=== PATIENT | male | born 1960 | race African-American/Black ===

== ENCOUNTER 2021-07-07 05:45 | Emergency (ER) | payer OTHER ==
[~2021-07-07] VITALS: Ht 193 cm; Wt 118.2 kg
[2021-07-07] MEDS ORDERED: LIDOCAINE 5% TRANSDERMAL PATCH TD ONE (07:00)
[2021-07-07] MEDS ORDERED: ACETAMINOPHEN 325 MG TABLET PO ONE (07:00)
[2021-07-07] MEDS: MORPHINE SULFATE 15 MG IR TABLET PO ONE ×2 (07:14→08:35)
[2021-07-07 07:52] VITALS: BP 178/124
[2021-07-07] MEDS ORDERED: NAPROXEN 250 MG TABLET PO ONE (08:00)
== END 2021-07-07 08:36 | disposition home or self-care (01) ==
LOC: EMS 05:46
DX: M25.552 Pain in left hip (principal); I10 Essential (primary) hypertension; F12.90 Cannabis use, unspecified, uncomplicated
CPT/HCPCS: 73503; 99284

== ENCOUNTER 2021-07-11 04:08 | Emergency (ER) | payer OTHER ==
[~2021-07-11] VITALS: Ht 193 cm; Wt 118.2 kg
[2021-07-11] MEDS ORDERED: ONDANSETRON HCL 4 MG/2 ML VIAL IM ONE (06:15)
[2021-07-11] MEDS ORDERED: MORPHINE SULFATE 4 MG/ML SYRINGE IM ONE (06:15)
[2021-07-11] MEDS ORDERED: AmLODIPine BESYLATE 5 MG TABLET PO ONE (06:45)
[2021-07-11 06:48] LABS: BASOPHILS % (AUTO) 0.7 % (0.0-2.0); EOSINOPHILS % (AUTO) 0.4 % (1.0-6.0); HEMATOCRIT 45.9 % (41-53); HEMOGLOBIN 15.7 g/dL (13.5-17.5); LYMPHOCYTES # (AUTO) 1.7 K/uL (1.0-4.8); LYMPHOCYTES % (AUTO) 20.3 % (22.0-44.0); MEAN CORPUSCULAR HEMOGLOBIN 27.5 pg (26.0-34.0); MEAN CORPUSCULAR HGB CONC 34.2 G/dL (31.0-37.0); MEAN CORPUSCULAR VOLUME 81 fL (80-100); MONOCYTES # (AUTO) 0.7 K/uL (0.1-1.0); MONOCYTES % (AUTO) 8.1 % (2.0-9.0); NEUTROPHILS # (AUTO) 5.9 K/uL (1.8-7.7); NEUTROPHILS % (AUTO) 70.5 % (40.0-70.0); PLATELET COUNT (AUTO) 248 K/uL (150-450); RED CELL DISTRIBUTION WIDTH 13.3 % (11.5-14.5)
[2021-07-11 07:08] LABS: ANION GAP 13 mmol/L (8-16); CALCIUM, TOTAL 9.6 mg/dL (8.8-10.5); CARBON DIOXIDE 23 mmol/L (22-29); CHLORIDE 102 mmol/L (98-107); CREATININE 1.21 mg/dL (0.60-1.30); GLOMERULAR FILTR. RATE CALC > 60 mL/min (>60); GLUCOSE,RANDOM 111 mg/dL (70-110); POTASSIUM 4.3 mmol/L (3.5-5.1); SODIUM SERUM 138 mmol/L (136-145); UREA NITROGEN, BLOOD 21 mg/dL (7-18)
[2021-07-11 07:12] LABS: ALANINE AMINOTRANSFERASE 78 U/L (12-78); ALBUMIN 4.6 g/dL (3.4-5.0); ALKALINE PHOSPHATASE 100 U/L (46-116); ASPARTATE AMINOTRANSFERASE 25 U/L (15-37); BILIRUBIN,TOTAL 0.9 mg/dL (0.1-1.0); TOTAL PROTEIN, SERUM 8.1 g/dL (6.4-8.2)
[2021-07-11] MEDS ORDERED: NITROGLYCERIN 2% (1 GM=INCH) PACKET TP ONE (07:15)
[2021-07-11] MEDS ORDERED: ASPIRIN 81 MG CHEWABLE TABLET PO ONE (07:15)
[2021-07-11] MEDS ORDERED: LABETALOL HCL 5 MG/ML 20 ML VIAL IVP ONE (07:15)
[2021-07-11] MEDS ORDERED: KETOROLAC TROMETHAMINE 30 MG/ML VIAL IVP ONE (07:45)
[2021-07-11 09:30] VITALS: BP 173/120
== END 2021-07-11 10:16 | disposition home or self-care (01) ==
LOC: EMS 04:11
DX: M25.552 Pain in left hip (principal); I10 Essential (primary) hypertension; F12.90 Cannabis use, unspecified, uncomplicated
CPT/HCPCS: 36415; 73503; 80053; 84484; 85025; 93005; 96372; 96374; 96375; 99285; J1885; J2270; J2405; J3490

== ENCOUNTER 2021-07-26 06:38 | Emergency (ER) | payer OTHER ==
[~2021-07-26] VITALS: Ht 180.3 cm; Wt 100.0 kg
[2021-07-26] MEDS ORDERED: LORazepam 2 MG/ML VIAL IVP ONE (09:00)
[2021-07-26] MEDS ORDERED: MORPHINE SULFATE 4 MG/ML SYRINGE IVP ONE (09:00)
[2021-07-26] MEDS ORDERED: KETOROLAC TROMETHAMINE 30 MG/ML VIAL IVP ONE (09:00)
[2021-07-26 12:35] VITALS: BP 166/93
== END 2021-07-26 12:36 | disposition home or self-care (01) ==
LOC: EMS 06:41
DX: M25.552 Pain in left hip (principal); I10 Essential (primary) hypertension; F12.90 Cannabis use, unspecified, uncomplicated; Z79.899 Other long term (current) drug therapy
CPT/HCPCS: 73700; 96374; 96375; 99284; J1885; J2060; J2270

== ENCOUNTER 2024-03-27 09:38 | Emergency (ER) | payer OTHER ==
[~2024-03-27] VITALS: Ht 180.3 cm; Wt 100.0 kg
[~2024-03-27 09:38] MED LIST: HYDR25TA2 PO
[2024-03-27 09:45] VITALS: TEMP 98.4
[2024-03-27] MEDS: OxyCODONE HCL/ACETAMINOPHEN 5-325 MG TABLET PO ONE (11:42)
[2024-03-27] MEDS: ONDANSETRON 4 MG TABLET PO ONE (11:42)
[2024-03-27 12:20] LABS: BASOPHILS % (AUTO) 0.5 % (0.0-2.0); EOSINOPHILS % (AUTO) 0.5 % (1.0-6.0); HEMATOCRIT 38.8 % (41-53); HEMOGLOBIN 12.5 g/dL (13.5-17.5); LYMPHOCYTES # (AUTO) 2.7 K/uL (1.0-4.8); LYMPHOCYTES % (AUTO) 20.7 % (22.0-44.0); MEAN CORPUSCULAR HEMOGLOBIN 26.6 pg (26.0-34.0); MEAN CORPUSCULAR HGB CONC 32.3 G/dL (31.0-37.0); MEAN CORPUSCULAR VOLUME 82 fL (80-100); MONOCYTES # (AUTO) 1.4 K/uL (0.1-1.0); MONOCYTES % (AUTO) 10.8 % (2.0-9.0); NEUTROPHILS % (AUTO) 67.5 % (40.0-70.0); PLATELET COUNT (AUTO) 349 K/uL (150-450); RED BLOOD CELL COUNT(AUTO) 4.71 MIL/uL (4.50-5.90); RED CELL DISTRIBUTION WIDTH 13.9 % (11.5-14.5); WHITE BLOOD COUNT (AUTO) 13.3 K/uL (4.5-11.0)
[2024-03-27 12:25] LABS: ANION GAP 11 mmol/L (8-16); CALCIUM, TOTAL 9.5 mg/dL (8.8-10.5); CARBON DIOXIDE 26 mmol/L (22-29); CHLORIDE 101 mmol/L (98-107); GLOMERULAR FILTR. RATE CALC > 60 mL/min (>60); GLUCOSE,RANDOM 103 mg/dL (70-110); POTASSIUM 3.8 mmol/L (3.5-5.1); SODIUM SERUM 138 mmol/L (136-145); UREA NITROGEN, BLOOD 14 mg/dL (7-18)
[2024-03-27 13:45] VITALS: BP 137/93; PULSE 88; RESP 18; O2SAT 98
== END 2024-03-27 13:54 | disposition home or self-care (01) ==
LOC: EMS 09:38
DX: M25.461 Effusion, right knee (principal); F12.90 Cannabis use, unspecified, uncomplicated; I10 Essential (primary) hypertension
CPT/HCPCS: 99284; 93971; 80048; 85025; 36415; Q0162

== ENCOUNTER 2024-12-12 09:12 | Emergency (ER) | payer OTHER ==
[~2024-12-12] VITALS: Ht 180.3 cm; Wt 98.6 kg
[2024-12-12 09:16] VITALS: TEMP 98.1
[2024-12-12] MEDS ORDERED: AMLO10TA55 PO (09:22)
[2024-12-12] MEDS ORDERED: LOSA-382 PO (09:22)
[2024-12-12] MEDS ORDERED: ATOR40TA28 PO (09:22)
[2024-12-12] MEDS ORDERED: IBUP-1492 PO (10:45)
[2024-12-12] MEDS ORDERED: ACET-3385 PO (10:45)
[2024-12-12] MEDS ORDERED: OXYC5 PO (10:45)
[2024-12-12] MEDS ORDERED: LIDO-57 TP (10:45)
[2024-12-12 11:00] VITALS: BP 120/85; PULSE 84; RESP 20; O2SAT 100
[2024-12-12] MEDS: ACETAMINOPHEN 500 MG TABLET PO ONE (11:08)
[2024-12-12] MEDS: LIDOCAINE 5% TRANSDERMAL PATCH TD ONE (11:08)
== END 2024-12-12 11:21 | disposition home or self-care (01) ==
LOC: EMS 09:12
DX: M54.16 Radiculopathy, lumbar region (principal); I10 Essential (primary) hypertension; F12.90 Cannabis use, unspecified, uncomplicated; Z96.653 Presence of artificial knee joint, bilateral; Z98.890 Other specified postprocedural states; Z79.899 Other long term (current) drug therapy
CPT/HCPCS: 99283

== ENCOUNTER 2024-12-15 02:58 | Inpatient (IN) | payer OTHER ==
[~2024-12-15] VITALS: Ht 180.3 cm; Wt 96.8 kg
[~2024-12-15 02:58] MED LIST changes: +ACET-3385 PO; +AMLO10TA55 PO; +ATOR40TA28 PO; +IBUP-1492 PO; +LIDO-57 TP; +LOSA-382 PO; +OXYC5 PO
[2024-12-15] MEDS: NITROGLYCERIN 2% (1 GM=INCH) OINTMENT PACKET TP ONE (03:48)
[2024-12-15] MEDS: MORPHINE SULFATE 2 MG/ML SYRINGE IVP ONE ×4 (03:48→08:57)
[2024-12-15 03:59] LABS: BASOPHILS % (AUTO) 0.5 % (0.0-2.0); EOSINOPHILS % (AUTO) 1.2 % (1.0-6.0); HEMATOCRIT 45.7 % (41-53); HEMOGLOBIN 14.7 g/dL (13.5-17.5); LYMPHOCYTES # (AUTO) 2.5 K/uL (1.0-4.8); LYMPHOCYTES % (AUTO) 22.4 % (22.0-44.0); MEAN CORPUSCULAR HEMOGLOBIN 25.7 pg (26.0-34.0); MEAN CORPUSCULAR HGB CONC 32.2 G/dL (31.0-37.0); MEAN CORPUSCULAR VOLUME 80 fL (80-100); MONOCYTES # (AUTO) 0.8 K/uL (0.1-1.0); NEUTROPHILS # (AUTO) 7.7 K/uL (1.8-7.7); NEUTROPHILS % (AUTO) 68.9 % (40.0-70.0); PLATELET COUNT (AUTO) 279 K/uL (150-450); RED BLOOD CELL COUNT(AUTO) 5.74 MIL/uL (4.50-5.90); RED CELL DISTRIBUTION WIDTH 13.6 % (11.5-14.5); WHITE BLOOD COUNT (AUTO) 11.2 K/uL (4.5-11.0)
[2024-12-15] MEDS: ONDANSETRON HCL 4 MG/2 ML VIAL IVP ONE ×2 (03:59→15:34)
[2024-12-15] MEDS: ASPIRIN 325 MG TABLET PO ONE (04:01)
[2024-12-15 04:04] LABS: ANION GAP 17 mmol/L (8-16); CALCIUM, TOTAL 9.9 mg/dL (8.8-10.5); CARBON DIOXIDE 18 mmol/L (22-29); CHLORIDE 101 mmol/L (98-107); CREATININE 1.49 mg/dL (0.60-1.30); GLOMERULAR FILTR. RATE CALC 58 mL/min (>60); GLUCOSE,RANDOM 108 mg/dL (70-110); POTASSIUM 3.7 mmol/L (3.5-5.1); SODIUM SERUM 136 mmol/L (136-145); UREA NITROGEN, BLOOD 14 mg/dL (7-18)
[2024-12-15 04:09] LABS: CREATINE KINASE, TOTAL ONLY 107 U/L (39-308)
[2024-12-15 04:11] LABS: TROPONIN I-HIGH SENSITIVITY 14 ng/L (<76)
[2024-12-15 04:16] LABS: PROTHROMBIN TIME 10.5 SEC (9.4-11.6)
[2024-12-15 04:21] LABS: B-TYPE NATRIURETIC PEPTIDE < 5 pg/mL (0-100)
[2024-12-15] MEDS: SODIUM CHLORIDE 0.9% 1,000 ML IV ONE (04:32)
[2024-12-15 06:14] LABS: TROPONIN I-HIGH SENSITIVITY 6 ng/L (<76)
[2024-12-15] MEDS: HydrALAZINE HCL 20 MG/ML VIAL IVP ONE (06:18)
[2024-12-15] MEDS: NiCARDipine HCL 25 MG in SODIUM CHLORIDE 0.9% 240 ML IV PRN (08:06)
[2024-12-15 09:39] LABS: APPEARANCE,URINE CLEAR (CLEAR); BILIRUBIN,URINE NEGATIVE (NEGATIVE); COLOR,URINE COLORLESS (YELLOW); GLUCOSE, URINE (UA) NEGATIVE (NEGATIVE); LEUKOCYTE ESTERASE ,URINE NEGATIVE (NEGATIVE); NITRATE,URINE NEGATIVE (NEGATIVE); OCCULT BLOOD,URINE NEGATIVE (NEGATIVE); PH,URINE 5.5 (5.0-8.0); PROTEIN,URINE NEGATIVE (NEGATIVE); SPECIFIC GRAVITIY, URINE 1.013 (1.003-1.030); UROBILINOGEN,URINE <=1.0 mg/dL (<=1.0)
[2024-12-15] MEDS: HYDROmorphone HCL 2 MG/ML SYRINGE IVP ONE (15:34)
[2024-12-15] MEDS: ATORVASTATIN CALCIUM 40 MG TABLET PO SCH (18:44)
[2024-12-15] MEDS: AmLODIPine BESYLATE 5 MG TABLET PO ONE ×2 (18:44→21:20)
[2024-12-15] MEDS: LOSARTAN POTASSIUM 50 MG TABLET PO ONE ×2 (18:44→21:20)
[2024-12-15] MEDS: MORPHINE SULFATE 2 MG/ML SYRINGE IVP PRN ×2 (19:41→22:47)
[2024-12-15] MEDS ORDERED: ACETAMINOPHEN 325 MG TABLET PO PRN (21:00)
[2024-12-15] MEDS ORDERED: HYDROCODONE/ACETAMINOPHEN 5-325 MG TABLET PO PRN (21:00)
[2024-12-15] MEDS: HYDROCODONE/ACETAMINOPHEN 5-325 MG TABLET PO PRN (21:19)
[2024-12-15] MEDS: ETHYL ALCOHOL 62% ANTISEPTIC NASAL SANITIZER 0.6 ML AMPUL NASAL SCH (21:20)
[2024-12-15 21:30] VITALS: BP 154/79; PULSE 88; PULSE 90; RESP 16; TEMP 98.1; O2SAT 96
[2024-12-15] MEDS ORDERED: CloNIDine HCL 0.1 MG TABLET PO PRN (22:30)
[2024-12-16] VITALS (8 sets, daily range): BP systolic 110–163; BP diastolic 49–121; PULSE 86–116; RESP 12–20; TEMP 98–98.4; O2SAT 93–97
[2024-12-16 05:19] LABS: BASOPHILS % (AUTO) 0.3 % (0.0-2.0); EOSINOPHILS % (AUTO) 1.5 % (1.0-6.0); HEMATOCRIT 45.6 % (41-53); LYMPHOCYTES # (AUTO) 2.6 K/uL (1.0-4.8); LYMPHOCYTES % (AUTO) 22.8 % (22.0-44.0); MEAN CORPUSCULAR HEMOGLOBIN 26.2 pg (26.0-34.0); MEAN CORPUSCULAR VOLUME 79 fL (80-100); MONOCYTES # (AUTO) 1.3 K/uL (0.1-1.0); MONOCYTES % (AUTO) 11.9 % (2.0-9.0); NEUTROPHILS # (AUTO) 7.2 K/uL (1.8-7.7); NEUTROPHILS % (AUTO) 63.5 % (40.0-70.0); PLATELET COUNT (AUTO) 247 K/uL (150-450); RED BLOOD CELL COUNT(AUTO) 5.75 MIL/uL (4.50-5.90); RED CELL DISTRIBUTION WIDTH 14.1 % (11.5-14.5); WHITE BLOOD COUNT (AUTO) 11.3 K/uL (4.5-11.0)
[2024-12-16 05:26] LABS: ANION GAP 11 mmol/L (8-16); CALCIUM, TOTAL 9.3 mg/dL (8.8-10.5); CARBON DIOXIDE 24 mmol/L (22-29); CHLORIDE 102 mmol/L (98-107); CREATININE 1.01 mg/dL (0.60-1.30); GLOMERULAR FILTR. RATE CALC > 60 mL/min (>60); GLUCOSE,RANDOM 103 mg/dL (70-110); POTASSIUM 3.5 mmol/L (3.5-5.1); SODIUM SERUM 137 mmol/L (136-145); UREA NITROGEN, BLOOD 12 mg/dL (7-18)
[2024-12-16] MEDS: LOSARTAN POTASSIUM 50 MG TABLET PO SCH (09:10)
[2024-12-16] MEDS: AmLODIPine BESYLATE 10 MG TABLET PO SCH (09:10)
[2024-12-16] MEDS ORDERED: OxyCODONE HCL/ACETAMINOPHEN 5-325 MG TABLET PO PRN (09:45)
[2024-12-16] MEDS ORDERED: ALBUTEROL SULFATE 2.5 MG/0.5 ML NEB SOLUTION NEB PRN (09:45)
[2024-12-16] MEDS ORDERED: IPRATROPIUM BROMIDE 0.5 MG/2.5 ML NEB SOLUTION NEB PRN (09:45)
[2024-12-16] MEDS ORDERED: MORPHINE SULFATE 2 MG/ML SYRINGE IVP PRN (09:45)
[2024-12-16] MEDS ORDERED: BISACODYL 10 MG RECTAL RECTAL SUPPOSITORY PR PRN (09:45)
[2024-12-16] MEDS ORDERED: ZOLPIDEM TARTRATE 5 MG TABLET PO PRN (09:45)
[2024-12-16] MEDS ORDERED: ONDANSETRON HCL 4 MG/2 ML VIAL IVP PRN (09:45)
[2024-12-16] MEDS: ASPIRIN 81 MG CHEWABLE TABLET PO ONE (10:09)
[2024-12-16] MEDS: PANTOPRAZOLE SODIUM 40 MG DR TABLET PO SCH (10:09)
[2024-12-16] MEDS: CloNIDine HCL 0.1 MG TABLET PO SCH (11:54)
[2024-12-16 12:06] LABS: TROPONIN I-HIGH SENSITIVITY 34 ng/L (<76)
[2024-12-16] MEDS: HEPARIN SODIUM,PORCINE 5,000 UNITS/ML VIAL SQ SCH (16:05)
[2024-12-16] MEDS: MAGNESIUM HYDROXIDE SUSPENSION 30 ML UDCUP PO PRN (20:53)
[2024-12-17 00:08] VITALS: BP 129/53; PULSE 121; RESP 18; TEMP 98.2; O2SAT 92
[2024-12-17 04:54] VITALS: BP 148/91; PULSE 85; RESP 18; TEMP 97.9; O2SAT 95
[2024-12-17 07:28] VITALS: BP 130/94; PULSE 83; RESP 18; TEMP 98.1; O2SAT 97
[2024-12-17] MEDS: ASPIRIN 81 MG CHEWABLE TABLET PO SCH (08:50)
[2024-12-17 11:30] VITALS: BP 120/95; PULSE 84; RESP 18; TEMP 98.2; O2SAT 95
[2024-12-17] MEDS: ACETAMINOPHEN 325 MG TABLET PO PRN (14:04)
[2024-12-17] MEDS: HYDROmorphone HCL 2 MG/ML SYRINGE IVP ONE (14:45)
[2024-12-17 15:46] VITALS: BP 113/91; PULSE 82; RESP 18; TEMP 97.5; O2SAT 96
[2024-12-17 19:27] VITALS: BP 141/90; PULSE 82; RESP 19; TEMP 98.2; O2SAT 98
[2024-12-18] VITALS (7 sets, daily range): BP systolic 112–134; BP diastolic 78–95; PULSE 64–88; RESP 17–19; TEMP 97.5–98.4; O2SAT 98–99
[2024-12-18] MEDS ORDERED: ASPI-1450 PO (11:33)
[2024-12-18] MEDS ORDERED: CLON0.1T2 PO (11:33)
[2024-12-18] MEDS ORDERED: OXYC-490 PO (11:37)
[2024-12-18] MEDS: PREGABALIN 75 MG CAPSULE PO ONE (21:26)
[2024-12-19] VITALS (8 sets, daily range): BP systolic 122–153; BP diastolic 90–103; PULSE 66–84; RESP 18; TEMP 97.9–98.2; O2SAT 97–100
[2024-12-19 09:25] LABS: BASOPHILS % (AUTO) 0.6 % (0.0-2.0); EOSINOPHILS % (AUTO) 2.9 % (1.0-6.0); HEMATOCRIT 42.9 % (41-53); LYMPHOCYTES # (AUTO) 2.2 K/uL (1.0-4.8); LYMPHOCYTES % (AUTO) 31.8 % (22.0-44.0); MEAN CORPUSCULAR HGB CONC 32.7 G/dL (31.0-37.0); MEAN CORPUSCULAR VOLUME 79 fL (80-100); MONOCYTES # (AUTO) 0.8 K/uL (0.1-1.0); MONOCYTES % (AUTO) 11.6 % (2.0-9.0); NEUTROPHILS # (AUTO) 3.6 K/uL (1.8-7.7); NEUTROPHILS % (AUTO) 53.1 % (40.0-70.0); PLATELET COUNT (AUTO) 234 K/uL (150-450); RED CELL DISTRIBUTION WIDTH 13.8 % (11.5-14.5); WHITE BLOOD COUNT (AUTO) 6.8 K/uL (4.5-11.0)
[2024-12-19 09:33] LABS: ANION GAP 7 mmol/L (8-16); CALCIUM, TOTAL 9.2 mg/dL (8.8-10.5); CARBON DIOXIDE 28 mmol/L (22-29); CHLORIDE 101 mmol/L (98-107); CREATININE 1.11 mg/dL (0.60-1.30); GLOMERULAR FILTR. RATE CALC > 60 mL/min (>60); GLUCOSE,RANDOM 108 mg/dL (70-110); POTASSIUM 3.7 mmol/L (3.5-5.1); SODIUM SERUM 136 mmol/L (136-145); UREA NITROGEN, BLOOD 17 mg/dL (7-18)
[2024-12-20] VITALS: BP 121/80; PULSE 74; RESP 18; TEMP 98.4; O2SAT 100
[2024-12-20 04:00] VITALS: BP 124/92; PULSE 70; RESP 18; TEMP 98.1; O2SAT 100
== END 2024-12-20 16:20 | disposition home or self-care (01) | DRG 199 ==
LOC: EMS 02:59 → EDH 06:39 → UNDOADMIN 07:31 → EDH 07:31 → ICUN 08:00 → EDH 08:00 → ICU 20:50 → 5S 12-16 15:30
PROVIDERS: ADMIT Hospitalist; ATTEND Hospitalist
DX: I16.0 Hypertensive urgency (principal); E78.5 Hyperlipidemia, unspecified; M51.16 Intervertebral disc disorders with radiculopathy, lumbar region; I10 Essential (primary) hypertension; M25.552 Pain in left hip; I45.2 Bifascicular block; G89.4 Chronic pain syndrome; Z96.653 Presence of artificial knee joint, bilateral; Z79.899 Other long term (current) drug therapy; Z79.82 Long term (current) use of aspirin
CPT/HCPCS: 71045; 72131; 72148; 72195; 74176; 80048; 81003; 82550; 83880; 84484; 85025; 85610; 85730; 87081; 93005; 97116; 97161; 97165; 97535; 99291; J0360; J1171; J1644; J2270; J2405; J3490; J7030; J7050; 36415-L1; 36415-TC